=== PATIENT | male | born 1955 | race Two or more races ===

== ENCOUNTER → 2020-06-14 | Outpatient (CLI) | payer OTHER ==
--- NOTE | 2020-06-14 09:54 | KCIC ---
EXAMINATION: SHOULDER 2+V LEFT CLINICAL HISTORY: UNSPECIFIED ACQUIRED DEFORMITY LEFT UPPER ARM. Decreased ROM. TECHNIQUE: SHOULDER 2+V LEFT Number of images/views: 3 COMPARISON: None FINDINGS: Mild glenohumeral and acromioclavicular joint space narrowing. No acute fracture. Acromiohumeral interval maintained. IMPRESSION: Mild degenerative changes. Electronically signed by: Hector Ross DO (06/14/2020 9:51 AM) [id number]
== END | disposition home or self-care (01) ==
LOC: KCIC 09:30
PROVIDERS: ATTEND Nurse Practitioner Family
DX: M19.012 Primary osteoarthritis, left shoulder (principal); M21.922 Unspecified acquired deformity of left upper arm
CPT/HCPCS: 73030